=== PATIENT | female | born 1960 | race Caucasian/White ===

== ENCOUNTER → 2024-03-23 | Outpatient (CLI) | payer OTHER, SELFPAY ==
--- NOTE | 2024-03-23 08:03 | BD_ITS ---
PROCEDURE: The patient is considered as outlined below according to [employer] (WHO) criteria with a fracture risk. There has been of bone density since the previous examination. REASON FOR EXAM: F, age 63 y/o . Patient is postmenopausal. TECHNIQUE: DEXA scan of the lumbar spine and left hip. COMPARISON: None. FINDINGS: Lumbar Spine (L1-L4): g/cm2 (1.002)/T-score (-0.4)/Z-score (1.4) findings are suggestive of normal with a low fracture risk. Left Femur Total: g/cm2 (0.784)/T-score (-1.3)/Z-score (-0.1) Left Femoral Neck: g/cm2 (0.690)/T-score (-1.4)/Z-score (0.1) BD/Dexa Bone Density Study IMPRESSION: The patient is considered osteopenic as outlined below according to [employer] (WHO) criteria with a low fracture risk. Reading Location: [id number]
== END | disposition home or self-care (01) ==
LOC: OPBD 08:01
DX: Z78.0 Asymptomatic menopausal state (principal); Z13.820 Encounter for screening for osteoporosis
CPT/HCPCS: 77080